=== PATIENT | female | born 1965 | race Two or more races ===

== ENCOUNTER 2020-05-02 09:03 | Outpatient (CLI) | payer OTHER ==
[~2020-05-02 09:03] MED LIST: DUI500 PO; INTESTINEX1 CA1 PO; PEPCID20 MG PO; SYNTHROID150 MCG PO; TRAM1TAB98 PO; ULTRACET PO
== END 2020-05-02 09:16 | disposition home or self-care (01) ==
LOC: RAD 09:03
PROVIDERS: ATTEND Internal Medicine Cardiovascular Disease
DX: R59.0 Localized enlarged lymph nodes (principal)

== ENCOUNTER → 2020-05-02 14:06 | Outpatient (CLI) | payer OTHER | END | disposition home or self-care (01) | LOC: LAB 13:21 | PROVIDERS: ATTEND Internal Medicine Cardiovascular Disease | DX: A64 Unspecified sexually transmitted disease (principal); N39.0 Urinary tract infection, site not specified; Z13.0 Encounter for screening for diseases of the blood and blood-forming organs and certain disorders involving the immune mechanism; M81.0 Age-related osteoporosis without current pathological fracture; E11.9 Type 2 diabetes mellitus without complications; Z12.11 Encounter for screening for malignant neoplasm of colon ==

== ENCOUNTER 2020-05-04 10:46 | Outpatient (CLI) | payer OTHER | END 2020-05-04 10:47 | disposition home or self-care (01) | LOC: NUCLEAR 10:46 | PROVIDERS: ATTEND Internal Medicine Cardiovascular Disease | DX: R59.0 Localized enlarged lymph nodes (principal) | CPT/HCPCS: 78804; A9556 ==

== ENCOUNTER 2020-05-14 07:41 | Outpatient (CLI) | payer OTHER | END 2020-05-14 08:09 | disposition home or self-care (01) | LOC: SONOGRAMA 07:41 | PROVIDERS: ATTEND Pathology Anatomic Pathology | DX: D47.9 Neoplasm of uncertain behavior of lymphoid, hematopoietic and related tissue, unspecified (principal) ==

== ENCOUNTER → 2020-05-14 08:20 | Outpatient (CLI) | payer OTHER | END | disposition home or self-care (01) | LOC: LAB 08:01 | PROVIDERS: ATTEND Internal Medicine Cardiovascular Disease | DX: N39.0 Urinary tract infection, site not specified (principal); Z20.828 Contact with and (suspected) exposure to other viral communicable diseases; T78.49XA Other allergy, initial encounter ==

== ENCOUNTER 2020-07-11 06:23 | Day surgery (SDC) | payer OTHER ==
[2020-07-11] MEDS ORDERED: ULTRACET PO (12:27)
== END 2020-07-11 14:29 | disposition home or self-care (01) ==
LOC: CIR.AMB 06:23
PROVIDERS: ATTEND Surgery
DX: C85.81 Other specified types of non-Hodgkin lymphoma, lymph nodes of head, face, and neck (principal); Z20.828 Contact with and (suspected) exposure to other viral communicable diseases